=== PATIENT | female | born 1950 | race Caucasian/White ===

== ENCOUNTER 2017-04-08 10:21 | Emergency (ER) | payer OTHER ==
[~2017-04-08] VITALS: Wt 78.0 kg
[~2017-04-08 10:21] MED LIST: BEN25 PO; CEPH-443 PO
--- NOTE | 2017-04-08 11:26 | ERD ---
ER Documentation Chief Complaint Chief Complaint FELL YESTERDAY R SIDED PAIN HPI 66y/o female patient with history of hypertension,presents to the emergency department c/o left wrist and right knee pain after a mechanical fall that occurred yesterday. pain is dull, rated 6/10, without radiation. The symptoms are associated with local edema. Denies fever, chills, N/V/D. No head trauma, no loss of consciousness. Treatment attempted: None ROS SYSTEMIC symptoms: no fever, chills, no night sweats, no weight loss EYE symptoms: No blurred vision, no eye discharge OTOLARYNGEAL symptoms: No hearing loss. No ear pain, no sore throat CARDIOVASCULAR symptoms: No chest pain or discomfort, no palpitations. PULMONARY symptoms: No dyspnea, no cough, no wheezing. GASTROINTESTINAL symptoms: No abdominal pain, no nausea, no vomiting, no diarrhea MUSCULOSKELETAL symptoms: + arthralgias, +muscle aches. NEUROLOGY symptoms: No confusion, no syncope, no numbness or tingling. SKIN no rashes All systems reviewed and are negative except as per history of present illness. Medications Home Meds Active Scripts Hydrocodone/Acetaminophen ([place] 5-325 Tablet) 1 Each Tablet, 1 TAB PO Q6H Y for PAIN, #12 TAB Prov:KEATON CALDWELL MD 04/08/17 Ibuprofen* (Motrin*) 600 Mg Tab, 600 MG PO Q8, #30 TAB Prov:KEATON CALDWELL MD 04/08/17 Cephalexin* (Keflex*) 500 Mg Capsule, 500 MG PO QID for 5 Days, CAP Prov:BAKARI GRANDE DO 08/31/15 Diphenhydramine Hcl* (Benadryl*) 25 Mg Cap, 25 MG PO Q6 Y for swelling, #14 TAB Prov:BAKARI GRANDE DO 08/31/15 Allergies Allergies: Coded Allergies: No Known Allergy (Unverified , 08/31/15) PMhx/Soc Hx Cardiac Disorders: Yes (htn) Hx Miscellaneous Medical Probl: Yes (dm, psoriasis) Hx Alcohol Use: No Hx Substance Use: No Hx Tobacco Use: No Physical Exam Vitals Vital Signs Date Time Temp Pulse Resp B/P Pulse Ox O2 Delivery O2 Flow Rate FiO2 04/08/17 10:26 98.0 78 18 159/74 99 Physical Exam Const: Alert, oriented, in no distress Head: Atraumatic Eyes: Normal Conjunctiva ENT: Normal External Ears, Nose and Mouth. Neck: Full range of motion..~ No meningismus. Resp: Clear to auscultation bilaterally Cardio: Regular rate and rhythm, no murmurs Abd: Soft, non tender, non distended. Normal bowel sounds Skin: No petechiae or rashes Back: No midline or flank tenderness Ext: Left wrist: With swelling, no deformity, tender to palpation, decreased range of motion for flexion and extension due to pain. Right knee: No knee effusion, mild edema, full range of motion no crepitus Neur: Awake and alert Psych: Normal Mood and Affect Results 24 hrs Current Medications Medications (Trade) Dose Ordered Sig/Jose Route PRN Reason Start Time Stop Time Status Last Admin Dose Admin Acetaminophen/ Hydrocodone Bitart ([place] (5/325)) 1 tab ONCE ONCE PO 04/08/17 12:00 04/08/17 12:01 DC 04/08/17 11:50 DIAGNOSTIC IMAGING REPORT Patient: JUAN REYNOSO : 1950 Age: 66 Sex: F MR #: [id number] DOS: 04/08/17 1135 Ordering MD: KEATON CALDWELL MD Location: FT Room/Bed: PROCEDURE: XR Knee 3 Views. CLINICAL INDICATION: Right knee pain and trauma. TECHNIQUE: AP, lateral and tunnel view of the right knee were obtained. The images reviewed on a PACS workstation. COMPARISON: None. FINDINGS: The osseous structures are intact. No destructive bony lesions are observed. Mild narrowing of the medial joint compartment is identified. Soft tissues are unremarkable. IMPRESSION: No visualized traumatic injury. 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 If there is high clinical suspicion for traumatic injury, further evaluation with CT should be considered. RPTAT: AA .Heron Cox MD, Date Time Electronically viewed and signed by .Heron Cox MD, on 04/08/2017 12:27 .P/ CC: KEATON CALDWELL MD Patient: JUAN REYNOSO : 1950 Age: 66 Sex: F [id number] DOS: 04/08/17 1135 Ordering MD: KEATON CALDWELL MD Location: FTE Room/Bed: PROCEDURE: XR Wrist 4 Views. CLINICAL INDICATION: Left wrist pain and trauma. TECHNIQUE: AP, scaphoid, oblique and lateral views of the left wrist were performed. COMPARISON: No prior studies are available for comparison. FINDINGS: The osseous structures are intact. No destructive bony lesions are identified. Interosseous spaces are normal. Subtle vascular calcifications are seen over the lateral aspect of the distal forearm. IMPRESSION: No visualized traumatic injury. If there is high clinical suspicion for traumatic injury, further evaluation with CT should be considered. RPTAT: AA .Heron Cox MD, MD Date Time Electronically viewed and signed by .Heron Cox MD, MD on 04/08/2017 12:26 .P/ CC: KEATON CALDWELL MD Procedures/MDM 66y/o female patient with history of hypertension, presents to the emergency department complaining of left wrist and right knee pain since yesterday after sustaining a mechanical fall. Vital signs stable, physical exam showed left wrist and right knee with local edema, no deformity mild decrease in range of motion due to pain. Differential diagnosis include but not limited to: Fracture , ligament/tendon injury, soft tissue contusion. Pertinent Data: X-Rays: Left wrist and right knee showed no fracture or acute dislocation Physical examination and clinical presentation consistent most likely with contusion of multiple sites after mechanical fall. During the ED course the patient received treatment with [place] presenting overall improvement of the symptoms. Results and medical impression discussed with patient who agrees with management. The patient will be discharged home with a Rx for ibuprofen and [place] as needed Side effects of prescribed narcotic medications (drowsiness, constipation, habituation) were reviewed. Side effects of prescribed NSAID medication (GI distress, edema, bleeding, HTN) were reviewed. If symptoms persist, worsen or new symptoms develop, then patient is instructed to follow-up with the primary care provider. If the patient is unable to see the primary care provider, then return to the ED immediately. Departure Diagnosis: Primary Impression: Fall with no significant injury Additional Impression: Contusion, multiple sites Condition: Stable Additional Instructions: Muchas arie por [facility] para olivares servicio. Esperamos que en olivares visita a la jonathan de emergencia olivares problema medico haya sido solucionado y que se sienta mucho mejor. Para estar seguros que olivares mejoria sigue en proceso, le pedimos el favor de hacer laila neema de seguimiento medico con olivares doctor primario en los proximos 2-4 mims. Lleve con usted estos documentos y las medicinas recetadas. Si jax sintomas empeoran y no puede bello a olivares doctor, por favor regrese a jonathan de emergencia. En trae que usted no tenga un mdico de atencin primaria: Llame al mdico o clnica comunitaria de referencia que aparece abajo constantine las horas de consultorio para hacer laila neema para que le vean. CLINICAS: [facility] [phone] [address] [facility] [phone] [facility] [phone] [address] [facility] [phone] [address] [place] [phone] [facility]. [phone] MD Apr 08, 2017 11:26
--- NOTE | 2017-04-08 11:26 | ERD ---
ER Documentation Chief Complaint Chief Complaint FELL YESTERDAY R SIDED PAIN HPI 66y/o female patient with history of hypertension,presents to the emergency department c/o left wrist and right knee pain after a mechanical fall that occurred yesterday. pain is dull, rated 6/10, without radiation. The symptoms are associated with local edema. Denies fever, chills, N/V/D. No head trauma, no loss of consciousness. Treatment attempted: None ROS SYSTEMIC symptoms: no fever, chills, no night sweats, no weight loss EYE symptoms: No blurred vision, no eye discharge OTOLARYNGEAL symptoms: No hearing loss. No ear pain, no sore throat CARDIOVASCULAR symptoms: No chest pain or discomfort, no palpitations. PULMONARY symptoms: No dyspnea, no cough, no wheezing. GASTROINTESTINAL symptoms: No abdominal pain, no nausea, no vomiting, no diarrhea MUSCULOSKELETAL symptoms: + arthralgias, +muscle aches. NEUROLOGY symptoms: No confusion, no syncope, no numbness or tingling. SKIN no rashes All systems reviewed and are negative except as per history of present illness. Medications Home Meds Active Scripts Hydrocodone/Acetaminophen ([place] 5-325 Tablet) 1 Each Tablet, 1 TAB PO Q6H Y for PAIN, #12 TAB Prov:KEATON CALDWELL MD 04/08/17 Ibuprofen* (Motrin*) 600 Mg Tab, 600 MG PO Q8, #30 TAB Prov:KEATON CALDWELL MD 04/08/17 Cephalexin* (Keflex*) 500 Mg Capsule, 500 MG PO QID for 5 Days, CAP Prov:BAKARI GRANDE DO 08/31/15 Diphenhydramine Hcl* (Benadryl*) 25 Mg Cap, 25 MG PO Q6 Y for swelling, #14 TAB Prov:BAKARI GRANDE DO 08/31/15 Allergies Allergies: Coded Allergies: No Known Allergy (Unverified , 08/31/15) PMhx/Soc Hx Cardiac Disorders: Yes (htn) Hx Miscellaneous Medical Probl: Yes (dm, psoriasis) Hx Alcohol Use: No Hx Substance Use: No Hx Tobacco Use: No Physical Exam Vitals Vital Signs Date Time Temp Pulse Resp B/P Pulse Ox O2 Delivery O2 Flow Rate FiO2 04/08/17 10:26 98.0 78 18 159/74 99 Physical Exam Const: Alert, oriented, in no distress Head: Atraumatic Eyes: Normal Conjunctiva ENT: Normal External Ears, Nose and Mouth. Neck: Full range of motion..~ No meningismus. Resp: Clear to auscultation bilaterally Cardio: Regular rate and rhythm, no murmurs Abd: Soft, non tender, non distended. Normal bowel sounds Skin: No petechiae or rashes Back: No midline or flank tenderness Ext: Left wrist: With swelling, no deformity, tender to palpation, decreased range of motion for flexion and extension due to pain. Right knee: No knee effusion, mild edema, full range of motion no crepitus Neur: Awake and alert Psych: Normal Mood and Affect Results 24 hrs Current Medications Medications (Trade) Dose Ordered Sig/Jose Route PRN Reason Start Time Stop Time Status Last Admin Dose Admin Acetaminophen/ Hydrocodone Bitart ([place] (5/325)) 1 tab ONCE ONCE PO 04/08/17 12:00 04/08/17 12:01 DC 04/08/17 11:50 DIAGNOSTIC IMAGING REPORT Patient: JUAN REYNOSO : 1950 Age: 66 Sex: F MR #: [id number] DOS: 04/08/17 1135 Ordering MD: KEATON CALDWELL MD Location: FT Room/Bed: PROCEDURE: XR Knee 3 Views. CLINICAL INDICATION: Right knee pain and trauma. TECHNIQUE: AP, lateral and tunnel view of the right knee were obtained. The images reviewed on a PACS workstation. COMPARISON: None. FINDINGS: The osseous structures are intact. No destructive bony lesions are observed. Mild narrowing of the medial joint compartment is identified. Soft tissues are unremarkable. IMPRESSION: No visualized traumatic injury. 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 If there is high clinical suspicion for traumatic injury, further evaluation with CT should be considered. RPTAT: AA .Heron Cox MD, Date Time Electronically viewed and signed by .Heron Cox MD, on 04/08/2017 12:27 .P/ CC: KEATON CALDWELL MD Patient: JUAN REYNOSO : 1950 Age: 66 Sex: F [id number] [id number] DOS: 04/08/17 1135 Ordering MD: KEATON CALDWELL MD Location: FTE Room/Bed: PROCEDURE: XR Wrist 4 Views. CLINICAL INDICATION: Left wrist pain and trauma. TECHNIQUE: AP, scaphoid, oblique and lateral views of the left wrist were performed. COMPARISON: No prior studies are available for comparison. FINDINGS: The osseous structures are intact. No destructive bony lesions are identified. Interosseous spaces are normal. Subtle vascular calcifications are seen over the lateral aspect of the distal forearm. IMPRESSION: No visualized traumatic injury. If there is high clinical suspicion for traumatic injury, further evaluation with CT should be considered. RPTAT: AA .Heron Cox MD, MD Date Time Electronically viewed and signed by .Heron Cox MD, MD on 04/08/2017 12:26 .P/ CC: KEATON CALDWELL MD Procedures/MDM 66y/o female patient with history of hypertension, presents to the emergency department complaining of left wrist and right knee pain since yesterday after sustaining a mechanical fall. Vital signs stable, physical exam showed left wrist and right knee with local edema, no deformity mild decrease in range of motion due to pain. Differential diagnosis include but not limited to: Fracture , ligament/tendon injury, soft tissue contusion. Pertinent Data: X-Rays: Left wrist and right knee showed no fracture or acute dislocation Physical examination and clinical presentation consistent most likely with contusion of multiple sites after mechanical fall. During the ED course the patient received treatment with [place] presenting overall improvement of the symptoms. Results and medical impression discussed with patient who agrees with management. The patient will be discharged home with a Rx for ibuprofen and [place] as needed Side effects of prescribed narcotic medications (drowsiness, constipation, habituation) were reviewed. Side effects of prescribed NSAID medication (GI distress, edema, bleeding, HTN) were reviewed. If symptoms persist, worsen or new symptoms develop, then patient is instructed to follow-up with the primary care provider. If the patient is unable to see the primary care provider, then return to the ED immediately. Departure Diagnosis: Primary Impression: Fall with no significant injury Additional Impression: Contusion, multiple sites Condition: Stable Additional Instructions: Muchas arie por [facility] para olivares servicio. Esperamos que en olivares visita a la jonathan de emergencia olivares problema medico haya sido solucionado y que se sienta mucho mejor. Para estar seguros que olivares mejoria sigue en proceso, le pedimos el favor de hacer laila neema de seguimiento medico con oilvares doctor primario en los proximos 2-4 mims. Lleve con usted estos documentos y las medicinas recetadas. Si jax sintomas empeoran y no puede bello a olivares doctor, por favor regrese a jonathan de emergencia. En trae que usted no tenga un mdico de atencin primaria: Llame al mdico o clnica comunitaria de referencia que aparece abajo constantine las horas de consultorio para hacer laila neema para que le vean. CLINICAS: [facility] [phone] [address] [facility] [phone] [facility] [phone] [facility] [phone] [place] [phone] 4251 [facility]. [phone] MD Apr 08, 2017 11:26
--- NOTE | 2017-04-08 11:26 | ERD ---
ER Documentation Chief Complaint Chief Complaint FELL YESTERDAY R SIDED PAIN HPI 66y/o female patient with history of hypertension,presents to the emergency department c/o left wrist and right knee pain after a mechanical fall that occurred yesterday. pain is dull, rated 6/10, without radiation. The symptoms are associated with local edema. Denies fever, chills, N/V/D. No head trauma, no loss of consciousness. Treatment attempted: None ROS SYSTEMIC symptoms: no fever, chills, no night sweats, no weight loss EYE symptoms: No blurred vision, no eye discharge OTOLARYNGEAL symptoms: No hearing loss. No ear pain, no sore throat CARDIOVASCULAR symptoms: No chest pain or discomfort, no palpitations. PULMONARY symptoms: No dyspnea, no cough, no wheezing. GASTROINTESTINAL symptoms: No abdominal pain, no nausea, no vomiting, no diarrhea MUSCULOSKELETAL symptoms: + arthralgias, +muscle aches. NEUROLOGY symptoms: No confusion, no syncope, no numbness or tingling. SKIN no rashes All systems reviewed and are negative except as per history of present illness. Medications Home Meds Active Scripts Hydrocodone/Acetaminophen ([place] 5-325 Tablet) 1 Each Tablet, 1 TAB PO Q6H Y for PAIN, #12 TAB Prov:KEATON CALDWELL MD 04/08/17 Ibuprofen* (Motrin*) 600 Mg Tab, 600 MG PO Q8, #30 TAB Prov:KEATON CALDWELL MD 04/08/17 Cephalexin* (Keflex*) 500 Mg Capsule, 500 MG PO QID for 5 Days, CAP Prov:BAKARI GRANDE DO 08/31/15 Diphenhydramine Hcl* (Benadryl*) 25 Mg Cap, 25 MG PO Q6 Y for swelling, #14 TAB Prov:BAKARI GRANDE DO 08/31/15 Allergies Allergies: Coded Allergies: No Known Allergy (Unverified , 08/31/15) PMhx/Soc Hx Cardiac Disorders: Yes (htn) Hx Miscellaneous Medical Probl: Yes (dm, psoriasis) Hx Alcohol Use: No Hx Substance Use: No Hx Tobacco Use: No Physical Exam Vitals Vital Signs Date Time Temp Pulse Resp B/P Pulse Ox O2 Delivery O2 Flow Rate FiO2 04/08/17 10:26 98.0 78 18 159/74 99 Physical Exam Const: Alert, oriented, in no distress Head: Atraumatic Eyes: Normal Conjunctiva ENT: Normal External Ears, Nose and Mouth. Neck: Full range of motion..~ No meningismus. Resp: Clear to auscultation bilaterally Cardio: Regular rate and rhythm, no murmurs Abd: Soft, non tender, non distended. Normal bowel sounds Skin: No petechiae or rashes Back: No midline or flank tenderness Ext: Left wrist: With swelling, no deformity, tender to palpation, decreased range of motion for flexion and extension due to pain. Right knee: No knee effusion, mild edema, full range of motion no crepitus Neur: Awake and alert Psych: Normal Mood and Affect Results 24 hrs Current Medications Medications (Trade) Dose Ordered Sig/Jose Route PRN Reason Start Time Stop Time Status Last Admin Dose Admin Acetaminophen/ Hydrocodone Bitart ([place] (5/325)) 1 tab ONCE ONCE PO 04/08/17 12:00 04/08/17 12:01 DC 04/08/17 11:50 DIAGNOSTIC IMAGING REPORT Patient: JUAN REYNOSO : 1950 Age: 66 Sex: F MR #: [id number] DOS: 04/08/17 1135 Ordering MD: KEATON CALDWELL MD Location: FT Room/Bed: PROCEDURE: XR Knee 3 Views. CLINICAL INDICATION: Right knee pain and trauma. TECHNIQUE: AP, lateral and tunnel view of the right knee were obtained. The images reviewed on a PACS workstation. COMPARISON: None. FINDINGS: The osseous structures are intact. No destructive bony lesions are observed. Mild narrowing of the medial joint compartment is identified. Soft tissues are unremarkable. IMPRESSION: No visualized traumatic injury. 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 If there is high clinical suspicion for traumatic injury, further evaluation with CT should be considered. RPTAT: AA .Heron Cox MD, Date Time Electronically viewed and signed by .Heron Cox MD, on 04/08/2017 12:27 .P/ CC: KEATON CALDWELL MD Patient: JUAN REYNOSO : 1950 Age: 66 Sex: F [id number] [id number] DOS: 04/08/17 1135 Ordering MD: KEATON CALDWELL MD Location: FTE Room/Bed: PROCEDURE: XR Wrist 4 Views. CLINICAL INDICATION: Left wrist pain and trauma. TECHNIQUE: AP, scaphoid, oblique and lateral views of the left wrist were performed. COMPARISON: No prior studies are available for comparison. FINDINGS: The osseous structures are intact. No destructive bony lesions are identified. Interosseous spaces are normal. Subtle vascular calcifications are seen over the lateral aspect of the distal forearm. IMPRESSION: No visualized traumatic injury. If there is high clinical suspicion for traumatic injury, further evaluation with CT should be considered. RPTAT: AA .Heron Cox MD, MD Date Time Electronically viewed and signed by .Heron Cox MD, MD on 04/08/2017 12:26 .P/ CC: KEATON CALDWELL MD Procedures/MDM 66y/o female patient with history of hypertension, presents to the emergency department complaining of left wrist and right knee pain since yesterday after sustaining a mechanical fall. Vital signs stable, physical exam showed left wrist and right knee with local edema, no deformity mild decrease in range of motion due to pain. Differential diagnosis include but not limited to: Fracture , ligament/tendon injury, soft tissue contusion. Pertinent Data: X-Rays: Left wrist and right knee showed no fracture or acute dislocation Physical examination and clinical presentation consistent most likely with contusion of multiple sites after mechanical fall. During the ED course the patient received treatment with [place] presenting overall improvement of the symptoms. Results and medical impression discussed with patient who agrees with management. The patient will be discharged home with a Rx for ibuprofen and [place] as needed Side effects of prescribed narcotic medications (drowsiness, constipation, habituation) were reviewed. Side effects of prescribed NSAID medication (GI distress, edema, bleeding, HTN) were reviewed. If symptoms persist, worsen or new symptoms develop, then patient is instructed to follow-up with the primary care provider. If the patient is unable to see the primary care provider, then return to the ED immediately. Departure Diagnosis: Primary Impression: Fall with no significant injury Additional Impression: Contusion, multiple sites Condition: Stable Additional Instructions: Muchas arie por [facility] para oilvares servicio. Esperamos que en olivares visita a la jonathan de emergencia olivares problema medico haya sido solucionado y que se sienta mucho mejor. Para estar seguros que olivares mejoria sigue en proceso, le pedimos el favor de hacer laila neema de seguimiento medico con olivares doctor primario en los proximos 2-4 mims. Lleve con usted estos documentos y las medicinas recetadas. Si jax sintomas empeoran y no puede bello a olivares doctor, por favor regrese a jonathan de emergencia. En trae que usted no tenga un mdico de atencin primaria: Llame al mdico o clnica comunitaria de referencia que aparece abajo constantine las horas de consultorio para hacer laila neema para que le vean. CLINICAS: [facility] [phone] [address] [facility] [phone] [facility] [phone] [address] [facility] [phone] [address] [place] [address] [phone] [facility]. [phone] MD Apr 08, 2017 11:26
[2017-04-08] MEDS ORDERED: HYDROCODONE/APAP (5/325) TAB PO ONE (12:00)
--- NOTE | 2017-04-08 12:26 | RADRPT ---
PROCEDURE: XR Wrist 4 Views. CLINICAL INDICATION: Left wrist pain and trauma. TECHNIQUE: AP, scaphoid, oblique and lateral views of the left wrist were performed. COMPARISON: No prior studies are available for comparison. FINDINGS: The osseous structures are intact. No destructive bony lesions are identified. Interosseous spaces are normal. Subtle vascular calcifications are seen over the lateral aspect of the distal forearm. IMPRESSION: No visualized traumatic injury. If there is high clinical suspicion for traumatic injury, further evaluation with CT should be consi dered. RPTAT: AA .Heron Cox MD, MD Date Time Electronically viewed and signed by .Heron Cox MD, on 04/08/2017 12:26 .P/
--- NOTE | 2017-04-08 12:27 | RADRPT ---
PROCEDURE: XR Knee 3 Views. CLINICAL INDICATION: Right knee pain and trauma. TECHNIQUE: AP, lateral and tunnel view of the right knee were obtained. The images reviewed on a PACS workstation. COMPARISON: None. FINDINGS: The osseous structures are intact. No destructive bony lesions are observed. Mild narrowing of the medial joint compartment is identified. Soft tissues are unremarkable. IMPRESSION: No visualized traumatic injury. 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 If there is high clinical suspicion for traumatic injury, further evaluation with CT should be consi dered. RPTAT: AA .Heron Cox MD, MD Date Time Electronically viewed and signed by .Heron Cox MD, on 04/08/2017 12:27 .P/
[2017-04-08] MEDS ORDERED: IBUP-1542 PO (12:55)
[2017-04-08] MEDS ORDERED: HYDR-906 PO (12:55)
== END 2017-04-08 13:11 | disposition home or self-care (01) ==
LOC: FTE 10:21
DX: S60.212A Contusion of left wrist, initial encounter (principal); S80.01XA Contusion of right knee, initial encounter; I10 Essential (primary) hypertension; E11.9 Type 2 diabetes mellitus without complications; W18.39XA Other fall on same level, initial encounter; Y92.9 Unspecified place or not applicable
CPT/HCPCS: 73562

== ENCOUNTER 2017-07-16 11:29 | Emergency (ER) | END 2017-07-16 14:52 | disposition home or self-care (01) ==